=== PATIENT | male | born 1990 | race Caucasian/White ===

== ENCOUNTER → 2020-06-14 | Outpatient (CLI) | payer OTHER ==
[2020-06-14 08:16] LABS: SPERM MORPHOLOGY SENT TO REFERENC LAB
[2020-06-14 08:47] LABS: SPERM CONCENTRATION 0.7 X10^6/mL (>12.0); TOTAL SPERM COUNT 3.2 X10^6 (>33.0)
[2020-06-14 08:49] LABS: SPERM PROGRESSION 2
== END ==
LOC: LAB 07:45
DX: N46.9 Male infertility, unspecified (principal)
CPT/HCPCS: 36415; 89320